=== PATIENT | female | born 1975 | race Caucasian/White ===

== ENCOUNTER 2017-10-19 20:55 | Inpatient (IN) | payer MEDICAID ==
[2017-10-19] VITALS (21 sets, daily range): BP systolic 132–169; BP diastolic 75–96; PULSE 71–99; RESP 18; TEMP 98.1; O2SAT 96–100
[~2017-10-19] VITALS: Ht 152.4 cm; Wt 103.0 kg
[2017-10-19] MEDS ORDERED: MAGNESIUM SULFATE 40 GM PREMIX 1,000 ML IV SCH (22:16)
[2017-10-19] MEDS ORDERED: CALCIUM GLUCONATE 10% 1 GM/10 ML VIAL IV PUSH PRN (22:30)
[2017-10-19] MEDS ORDERED: LABETALOL HCL 100 MG/20 ML VIAL IV PUSH PRN (22:30)
[2017-10-19] MEDS ORDERED: LABETALOL HCL 100 MG/20 ML VIAL IV ONE (22:30)
[2017-10-19] MEDS ORDERED: ACETAMINOPHEN 325 MG TAB PO ONE (22:30)
[2017-10-19] MEDS ORDERED: ACETAMINOPHEN 325 MG TAB PO PRN (22:30)
[2017-10-19] MEDS ORDERED: SODIUM CHLORIDE 0.9% FLUSH 10 ML FLUSH IV FLUSH PRN (22:30)
[2017-10-19] MEDS: LACTATED RINGER'S 1000 ML INJ 1,000 ML IV SCH (22:47)
[2017-10-19] MEDS ORDERED: SODIUM CHLOR 0.9% 1000 ML INJ 1,000 ML IV SCH (23:00)
--- NOTE | 2017-10-19 23:13 | HHI.HP ---
HPI Chief Complaint swelling Date Seen: Oct 19, 2017 Time Seen: 23:09 Travel History International Travel<30 Days: No Contact w/Intl Traveler<30Days: No Known Affected Area: No History of Present Illness HPI pt. presents as a transfer from [facility] 2/2 increased bp. pt. states she is 5 days pp and deliverd at hospital in [facility]. noticed swelling in feet today , and went for eval at ed. when present pt. have slight yen, and had noted htn. pt. bp was noted to be 180-90/90-100. pt. given 4 gm mg bolus and tranferred. at presentation pt. continue w/ increased bp and given iv labetalol w/ decrease to 130's. pt. states preg complicated by ama and gdm controlled w/ diet. pt. denies cp/sob, n/v, yen/visual distrubances. Para: 2 : 2 History Past Medical History Medical History: Denies Significant Hx Past Surgical History Surgical History: No Previous Surgery Family History Family History: Negative Social History Alcohol Use: No Tobacco Use: No Substance Abuse: No Allergies-Medications (Allergen,Severity, Reaction): Coded Allergies: amoxicillin (Verified Allergy, Intermediate, Hives, 10/19/17) Home Meds No Active Prescriptions or Reported Meds Review of Systems Except as stated in HPI: all other systems reviewed are Neg Physical Exam Narrative GENERAL: Well-nourished, well-developed patient. SKIN: Warm and dry. HEAD: Normocephalic and atraumatic. EYES: No scleral icterus. No injection or drainage. ENT: No nasal drainage noted. Mucous membranes pink. Airway patent. NECK: Supple, trachea midline. No JVD. CARDIOVASCULAR: Regular rate and rhythm without murmurs, gallops, or rubs. RESPIRATORY: Breath sounds equal bilaterally. No accessory muscle use. ABDOMEN/GI: Abdomen soft, non-tender, bowel sounds present, no rebound, no guarding EXTREMITIES: No cyanosis or edema. BACK: Nontender without obvious deformity. No CVA tenderness. NEUROLOGICAL: Awake and alert. Motor and sensory grossly within normal limits. Five out of 5 muscle strength in all muscle groups. Normal speech. Caprini VTE Risk Assessment Caprini VTE Risk Assessment: No/Low Risk (score <= 1) Caprini Risk Assessment Model Point Value = 1 Point Value = 2 Point Value = 3 Point Value = 5 Age 41-60 Minor surgery BMI > 25 kg/m2 Swollen legs Varicose veins or History of unexplained or recurrent spontaneous Oral contraceptives or hormone replacement Sepsis (< 1 month) Serious lung disease, including pneumonia (< 1 month) Abnormal pulmonary function Acute myocardial infarction Congestive heart failure (< 1 month) History of inflammatory bowel disease Medical patient at bed rest Age 61-74 Arthroscopic surgery Major open surgery (> 45 min) Laparoscopic surgery (> 45 min) Malignancy Confined to bed (> 72 hours) Immobilizing plaster cast Central venous access Age >= 75 History of VTE Family history of VTE Factor V Leiden Prothrombin [id number] Lupus anticoagulant Anticardiolipin antibodies Elevated serum homocysteine Heparin-induced thrombocytopenia Other congenital or acquired thrombophilia Stroke (< 1 month) Elective arthroplasty Hip, pelvis, or leg fracture Acute spinal cord injury (< 1 month) Prophylaxis Regimen Total Risk Factor Score Risk Level Prophylaxis Regimen 0-1 Low Early ambulation 2 Moderate Order ONE of the following: *Sequential Compression Device (SCD) *Heparin 5000 units SQ BID 3-4 Higher Order ONE of the following medications: *Heparin 5000 units SQ TID *Enoxaparin/Lovenox 40 mg SQ daily (WT < 150 kg, CrCl > 30 mL/min) *Enoxaparin/Lovenox 30 mg SQ daily (WT < 150 kg, CrCl > 10-29 mL/min) *Enoxaparin/Lovenox 30 mg SQ BID (WT < 150 kg, CrCl > 30 mL/min) AND/OR *Sequential Compression Device (SCD) 5 or more Highest Order ONE of the following medications: *Heparin 5000 units SQ TID (Preferred with Epidurals) *Enoxaparin/Lovenox 40 mg SQ daily (WT < 150 kg, CrCl > 30 mL/min) *Enoxaparin/Lovenox 30 mg SQ daily (WT < 150 kg, CrCl > 10-29 mL/min) *Enoxaparin/Lovenox 30 mg SQ BID (WT < 150 kg, CrCl > 30 mL/min) AND *Sequential Compression Device (SCD) Data Data Vital Signs Reviewed: Yes Orders Orders Admit To Inpatient (10/19/17 ) Code Status (10/19/17 22:12) Vital Signs (Adult) .Per protocol (10/19/17 22:12) Urinary Catheter Management .ONCE (10/19/17 22:12) Diet Liquid (10/20/17 Breakfast) Inpatient Certification (10/19/17 ) Acetaminophen (Tylenol) (10/19/17 22:30) Acetaminophen (Tylenol) (10/19/17 22:30) Labetalol Inj (Trandate Inj) (10/19/17 22:30) Sodium Chlor 0.9% 1000 Ml Inj (Ns 1000 M (10/19/17 23:00) Activity Bed Rest (10/19/17 22:16) Intake + Output Q1H (10/19/17 22:16) Notify Parameters (10/19/17 22:16) Lactated Ringer's 1000 Ml Inj (Lr 1000 M (10/19/17 22:16) Sodium Chloride 0.9% Flush (Ns Flush) (10/19/17 22:30) Sodium Chloride 0.9% Flush (Ns Flush) (10/20/17 09:00) Magnesium Sulfate 40 Gm Premix (Magnesiu (10/19/17 22:16) Labetalol Inj (Trandate Inj) (10/19/17 22:30) Calcium Gluconate Inj (Calcium Gluconate (10/19/17 22:30) Cbc No Diff, Includes Plts (10/20/17 06:00) Comprehensive Metabolic Panel (10/20/17 06:00) Uric Acid (10/20/17 06:00) Assessment/Plan Problem List: (1) Preeclampsia in period ICD Codes: O14.95 - Unspecified pre-eclampsia, complicating the puerperium Status: Acute Assessment and Plan pt. is a 42 y/o 5 days w/ preeclampsia. condtion d/w pt. pt. to be on mgso4 2 gm/hr for at least 24 hours. pt. to have iv labetalol for bp control. will continue to monitor. Bryan Pool Jr., MD Oct 19, 2017 23:13
[2017-10-20] VITALS (33 sets, daily range): BP systolic 111–163; BP diastolic 69–90; PULSE 55–90; RESP 16–18; TEMP 97.7–98.2; O2SAT 97–99
[2017-10-20] MEDS: oxyCODONE/ACETAMINOPHEN 5 MG/325 MG TAB PO PRN ×2 (01:42→06:55)
[2017-10-20] MEDS ORDERED: oxyCODONE/ACETAMINOPHEN 5 MG/325 MG TAB PO PRN (01:45)
[2017-10-20 06:16] LABS: HEMATOCRIT 26.5 % (35.0-46.0); HEMOGLOBIN 8.4 GM/DL (11.6-15.3); MEAN CELL VOLUME 69.7 FL (80.0-100.0); MEAN CORPUSCULAR HEMOGLOBIN 22.2 PG (27.0-34.0); MEAN CORPUSCULAR HGB CONC 31.8 % (32.0-36.0); MEAN PLATELET VOLUME 8.3 FL (7.0-11.0); PLATELET COUNT 253 TH/MM3 (150-450); RED BLOOD COUNT 3.81 MIL/MM3 (4.00-5.30); RED CELL DISTRIBUTION WIDTH 18.5 % (11.6-17.2); WHITE BLOOD COUNT 8.9 TH/MM3 (4.0-11.0)
[2017-10-20 06:33] LABS: ALBUMIN 2.5 GM/DL (3.4-5.0); AST (GOT) 20 U/L (15-37); BICARBONATE 23.8 MEQ/L (21.0-32.0); BLOOD UREA NITROGEN 6 MG/DL (7-18); CALCIUM 7.6 MG/DL (8.5-10.1); CHLORIDE 108 MEQ/L (98-107); CREATININE 0.54 MG/DL (0.50-1.00); GLOMERULAR FILTRATION RATE 123 ML/MIN (>89); GLUCOSE,RANDOM 104 MG/DL (74-106); SODIUM (NA) 140 MEQ/L (136-145)
[2017-10-20 06:34] LABS: ALT (GPT) 27 U/L (10-53)
[2017-10-20 06:36] LABS: ALKALINE PHOSPHATASE 142 U/L (45-117); TOTAL BILIRUBIN ADULT 0.2 MG/DL (0.2-1.0); TOTAL PROTEIN 6.6 GM/DL (6.4-8.2)
--- NOTE | 2017-10-20 08:32 | HHI.OB ---
Subjective Post Day: 6 Remarks pt. present as transfer from [facility] for preeclamp. pt. on mgso4 2 gms per hor and receive 20mg iv labetalol. since pt pressures range 140-120/ 80's. pt. w/o c/o. pt. had yen on present now resolved. no visual disturbances , no cp/sob, no n/v. Objective Vitals/I&O Vital Signs Date Time Temp Pulse Resp B/P (MAP) Pulse Ox O2 Delivery O2 Flow Rate FiO2 10/20/17 03:30 18 Objective Remarks GENERAL: Well-nourished, well-developed patient. CARDIOVASCULAR: Regular rate and rhythm without murmurs, gallops, or rubs. RESPIRATORY: Breath sounds equal bilaterally. No accessory muscle use. ABDOMEN/GI: Abdomen soft, non-tender. Fundus: Firm, non-tender at umbilicus. GENITOURINARY: Light to moderate bleeding. EXTREMITIES: No cyanosis or edema, non-tender, without signs of DVT. Medications and IVs Current Medications Medications (Trade) Dose Ordered Sig/Joel Route Start Time Stop Time Status Last Admin (Tylenol) 650 mg Q4H PRN PO 10/19/17 22:30 Sodium Chloride 1,000 ml @ 50 mls/hr Q20H IV 10/19/17 23:00 Lactated Ringer's 1,000 ml @ 75 mls/hr [id number] IV 10/19/17 22:16 10/19/17 22:47 (NS Flush) 2 ml UNSCH PRN IV FLUSH 10/19/17 22:30 (NS Flush) 2 ml BID IV FLUSH 10/20/17 09:00 Magnesium Sulfate 1,000 ml @ 50 mls/hr Q20H IV 10/19/17 22:16 10/19/17 22:38 (Trandate Inj) 20 mg NOW PRN IV PUSH 10/19/17 22:30 10/20/17 22:29 (Calcium Gluconate Inj) 1 gm UNSCH PRN IV PUSH 10/19/17 22:30 (Percocet 5-325 Mg) 1 tab Q4H PRN PO 10/20/17 01:45 (Percocet 5-325 Mg) 2 tab Q4H PRN PO 10/20/17 01:45 10/20/17 06:55 Assessment/Plan Problem List: (1) Preeclampsia in period ICD Codes: O14.95 - Unspecified pre-eclampsia, complicating the puerperium Status: Acute Plan: pt. to continue mgso4 at 2 gms per hour for 24 hours. prn iv labetalol for bp control. will continue to follow closely. Assessment and Plan pt. is a 42 y/o 5 days w/ preeclampsia. condtion d/w pt. pt. to be on mgso4 2 gm/hr for at least 24 hours. pt. to have iv labetalol for bp control. will continue to monitor. Bryan Pool Jr., MD Oct 20, 2017 08:32
[2017-10-20] MEDS ORDERED: SODIUM CHLORIDE 0.9% FLUSH 10 ML FLUSH IV FLUSH SCH (09:00)
[2017-10-20] MEDS ORDERED: ONDANSETRON HCL 4 MG/2 ML VIAL IV PUSH PRN (10:30)
[2017-10-20] MEDS: KETOROLAC TROMETHAMINE 30 MG/ML (IVP) VIAL IV PUSH PRN ×2 (11:09→23:50)
[2017-10-20] MEDS: LACTATED RINGER'S 1000 ML INJ 1,000 ML IV SCH (11:36)
[2017-10-20] MEDS ORDERED: NIFEdipine 10 MG CAP PO ONE (14:15)
[2017-10-21 02:00] VITALS: BP 150/95; PULSE 87; RESP 16; TEMP 98.1
--- NOTE | 2017-10-21 05:58 | HHI.OB ---
Subjective Post Day: 7 Remarks Pt seen and examined this morning. Postoperative day # 7 AFVSS overnight. Decreased lochia. Denies dysuria. No breast tenderness. Appetite good. No nausea or vomiting. Patient has not yet had a bowel movement, but does endorse bowel gas. Ambulating well. Denies calf pain or shortness of breath. Patient complains of continued headache, but does state that Toradol helps her symptoms. Her only other complaint is continued hemorrhoids, otherwise denies any fevers, chills, shortness of breath, chest pain, MVD, abdominal pain, or calf tenderness. (Marco A Ferguson MD R2) Remarks Patient seen and evaluated with resident under direct supervision, agree with assessment and plan. (Danny Vela MD) Objective Vitals/I&O Vital Signs Date Time Temp Pulse Resp B/P (MAP) Pulse Ox O2 Delivery O2 Flow Rate FiO2 10/21/17 02:00 98.1 87 16 150/95 (113) 10/20/17 23:03 98.2 84 16 126/80 (95) 10/20/17 22:00 90 133/74 (93) 10/20/17 21:00 82 130/70 (90) 10/20/17 20:00 18 10/20/17 20:00 81 128/75 (92) 10/20/17 19:43 97.8 10/20/17 19:00 80 125/73 (90) 10/20/17 18:00 75 131/75 (93) 10/20/17 17:00 79 135/77 (96) 10/20/17 16:00 84 127/69 (88) 10/20/17 15:33 84 133/74 (93) 10/20/17 15:00 83 163/90 (114) 10/20/17 14:42 16 10/20/17 14:01 67 160/90 (113) 10/20/17 14:00 17 10/20/17 13:00 98.2 10/20/17 13:00 17 10/20/17 13:00 63 155/81 (105) 10/20/17 12:00 59 142/86 (104) 10/20/17 12:00 18 10/20/17 11:00 65 140/82 (101) 10/20/17 11:00 16 10/20/17 10:00 73 144/80 (101) 10/20/17 10:00 16 10/20/17 09:00 67 133/79 (97) 10/20/17 09:00 97.7 16 10/20/17 08:00 73 141/79 (99) 10/20/17 08:00 17 10/20/17 07:00 67 149/87 (107) 10/20/17 06:00 63 138/76 (96) 10/20/17 06:00 18 Objective Remarks GENERAL: Well-nourished, well-developed patient. CARDIOVASCULAR: Regular rate and rhythm without murmurs, gallops, or rubs. RESPIRATORY: Breath sounds equal bilaterally. No accessory muscle use. ABDOMEN/GI: Abdomen soft, non-tender. Fundus: Firm, non-tender at umbilicus. GENITOURINARY: Light to moderate bleeding. EXTREMITIES: No cyanosis or edema, non-tender, without signs of DVT. Reflexes within normal limits. Medications and IVs Current Medications Medications (Trade) Dose Ordered Sig/Joel Route Start Time Stop Time Status Last Admin (Tylenol) 650 mg Q4H PRN PO 10/19/17 22:30 10/20/17 18:12 Sodium Chloride 1,000 ml @ 50 mls/hr Q20H IV 10/19/17 23:00 Lactated Ringer's 1,000 ml @ 75 mls/hr [id number] IV 10/19/17 22:16 10/20/17 11:36 (NS Flush) 2 ml UNSCH PRN IV FLUSH 10/19/17 22:30 (NS Flush) 2 ml BID IV FLUSH 10/20/17 09:00 Magnesium Sulfate 1,000 ml @ 50 mls/hr Q20H IV 10/19/17 22:16 10/19/17 22:38 (Calcium Gluconate Inj) 1 gm UNSCH PRN IV PUSH 10/19/17 22:30 (Percocet 5-325 Mg) 1 tab Q4H PRN PO 10/20/17 01:45 (Percocet 5-325 Mg) 2 tab Q4H PRN PO 10/20/17 01:45 10/20/17 06:55 (Toradol Inj) 30 mg Q6H PRN IV PUSH 10/20/17 10:30 10/25/17 10:29 10/20/17 23:50 (Zofran Inj) 4 mg Q6HR PRN IV PUSH 10/20/17 10:30 10/20/17 11:09 (Marco A Ferguson MD R2) Assessment/Plan Problem List: (1) Preeclampsia in period ICD Codes: O14.95 - Unspecified pre-eclampsia, complicating the puerperium Status: Acute Assessment and Plan 42 y/o female who is PPD# 7 s/p . 1. -Continue routine care. -Motrin and Percocet PRN pain. -Encouraged OOB. Advised pelvic rest for 6 wks. 2.Post- Pre-eclampsia -BP range 126/80-163/90, with most recent blood pressure of 150/95 -24-hour magnesium completed at midnight 10/20/17 -Nifedipine 10 mg given once 10/20/17 -Patient started on Labetalol 100mg BID -Toradol given as needed for cramping/headaches -Patient to be discharged home today with Labetalol 100mg twice a day for BP control -Patient voiced verbal understanding of close OB follow up for BP control, patient has appt. on 10/27 -Patient instructed on when to return to ED and voiced understanding dw Dr. Mirian MD Discharge Planning Today with close OB follow up (Marco A Ferguson MD R2) Marco A Ferguson MD R2 Oct 21, 2017 05:58 Danny Vela MD Oct 23, 2017 07:29
[2017-10-21] MEDS ORDERED: WITCH HAZEL 50%/GLYCERIN 12.5% 40 PAD JAR TOPICAL PRN (07:00)
[2017-10-21] MEDS ORDERED: BENZOCAINE 20% TOPICAL SPRAY 60 ML CAN TOPICAL PRN (07:00)
[2017-10-21] MEDS ORDERED: IBUP-232 PO (07:43)
[2017-10-21] MEDS ORDERED: ACET325T15 PO (07:43)
[2017-10-21] MEDS ORDERED: LABE100T2 PO (07:43)
[2017-10-21] MEDS ORDERED: DOCU8.6T PO (07:43)
--- NOTE | 2017-10-21 07:43 | HHI.DCPOC ---
Discharge Care Plan Diagnosis: (1) Preeclampsia in period Report Symptoms to Your Doctor -Temperature above 100.5 degrees -Redness, of incision or excessive or foul smelling drainage -Unusual pain or calf pain -Increased vaginal bleeding -Painful or difficulty urinating -Feelings of extreme sadness or anxiety after 2 weeks Goals to Promote Your Health * To prevent worsening of your condition and complications * To maintain your health at the optimal level Directions to Meet Your Goals Take your medications as prescribed Follow your dietary instruction Follow activity as directed Ensure plenty of rest for recovery Drink fluids for hydration Keep your appointments as scheduled Take your immunizations and boosters as scheduled If your symptoms worsen call your PCP, if no PCP go to Urgent Care Center or Emergency Room Smoking is Dangerous to Your Health. Avoid second hand smoke Call the 24-hour crisis hotline for domestic abuse at Marco A Ferguson MD R2 Oct 21, 2017 07:43 Danny Vela MD Oct 23, 2017 07:35
[2017-10-21] MEDS: KETOROLAC TROMETHAMINE 30 MG/ML (IVP) VIAL IV PUSH PRN (07:55)
[2017-10-21 08:00] VITALS: BP 143/91; PULSE 77; RESP 18; TEMP 98.3
[2017-10-21] MEDS ORDERED: LABETALOL HCL 100 MG TAB PO ONE (08:00)
== END 2017-10-21 09:43 | disposition home or self-care (01) | DRG 776 ==
LOC: NEDDLT 20:55 → H2EB 21:09 → H1EA 10-20 22:27
PROVIDERS: ADMIT Obstetrics & Gynecology; ATTEND Obstetrics & Gynecology
DX: O14.95 Unspecified pre-eclampsia, complicating the puerperium (principal); R51 Headache; K64.9 Unspecified hemorrhoids; R60.0 Localized edema; Z86.32 Personal history of gestational diabetes
CPT/HCPCS: 71045; 71275; 80053; 81001; 83605; 83690; 83735; 83880; 84484; 84550; 85025; 85027; 85379; 85610; 85730; 87086; 96374; 96375; J0360; J1885; J2405; J3475; J7120; Q9967